=== PATIENT | female | born 1955 | race Caucasian/White ===

== ENCOUNTER → 2019-02-04 | Outpatient (CLI) | payer MEDICARE ==
[2019-02-04 11:57] LABS: BASO # 0.1 10^3/uL (0.0-0.2); BASO % 1.4 % (0.0-1.0); EOS # 0.2 10^3/uL (0.0-0.50); EOS % 2.6 % (0.0-3.0); HEMATOCRIT 27.9 % (36.0-47.0); LYMPH # 2.4 10^3/uL (1.5-4.5); LYMPH % 33.4 % (24.0-44.0); MEAN CORPUSCULAR HEMOGLOBIN 44.8 pg (27.0-33.0); MEAN CORPUSCULAR VOLUME 104.1 fl (80.0-96.0); MONO # 0.4 10^3/uL (0.0-0.8); MONO % 5.9 % (0.0-5.0); NEUTROPHILS # 4.1 10^3/uL (1.8-7.7); NEUTROPHILS % 56.4 % (36.0-66.0); PLATELET COUNT, AUTOMATED 351 10^3/uL (150-450); RED BLOOD COUNT 2.68 10^6/uL (4.00-5.40); WHITE BLOOD COUNT 7.3 10^3/uL (4.0-10.0)
[2019-02-04 12:22] LABS: ALT/SGPT 23 U/L (12-78); BILIRUBIN,TOTAL 1.8 MG/DL (0.2-1.0); BLOOD UREA NITROGEN 13 MG/DL (7-18); CARBON DIOXIDE LEVEL 29 MEQ/L (21-32); CHLORIDE LEVEL 108 MEQ/L (98-107); CHOLESTEROL LEVEL 180 MG/DL (<200); CHOLESTEROL RISK RATIO 3.529 (<5); CREATININE FOR GFR 0.87 MG/DL (0.55-1.30); GLOMERULAR FILTRATION RATE > 60.0 (>45); GLUCOSE, FASTING 97 MG/DL (70-100); HDL CHOLESTEROL 51 MG/DL (>40); LDL CHOLESTEROL 105 MG/DL (<100); NON-HDL-C 129 MG/DL; POTASSIUM SERUM 4.4 MEQ/L (3.5-5.1); SODIUM LEVEL 141 MEQ/L (136-145); TOTAL PROTEIN 7.2 GM/DL (6.4-8.2); TRIGLYCERIDES LEVEL 121 MG/DL (<150)
[2019-02-04 12:41] LABS: ANISOCYTOSIS 2+; PLATELET ESTIMATE NORMAL (NORMAL)
--- NOTE | 2019-02-04 12:57 | REP ---
Left foot four views: There are no comparisons. There is diffuse demineralization. There is no fracture or dislocation. There are no calcifications or foreign bodies. There is a small calcaneal plantar spur. There is moderate DIP and PIP joint space narrowing of the digits. Electronically Signed by Toan Villavicencio MD 02/04/2019 12:48 P
== END ==
LOC: M LAB 11:05
PROVIDERS: ATTEND Physician Assistant
DX: M77.32 Calcaneal spur, left foot (principal); M19.072 Primary osteoarthritis, left ankle and foot; D59.1 Other autoimmune hemolytic anemias; R03.0 Elevated blood-pressure reading, without diagnosis of hypertension; Z13.6 Encounter for screening for cardiovascular disorders; M79.672 Pain in left foot

== ENCOUNTER → 2019-02-27 | Outpatient (CLI) | payer MEDICARE ==
[~2019-02-27] MED LIST: GASTROGRAFIN SOLUTION 30ML (Q9963) As Ordered ONE
--- NOTE | 2019-02-27 18:50 | REP ---
CT CHEST WITHOUT IV CONTRAST: CT chest was performed without IV contrast. Sagittal and coronal reconstruction images are performed. There is no evidence of mediastinal, hilar or chest wall lymphadenopathy. There is no pleural or pericardial effusion. The heart is normal in size. There is atherosclerotic calcification of the thoracic aorta without aneurysm. The lungs show no infiltrate or suspicious nodular opacity. There are mild diffuse degenerative changes of the spine. IMPRESSION: No evidence of lymphadenopathy in the chest and no suspicious parenchymal abnormality. Electronically Signed by Toan Linares MD 02/28/2019 09:55 A
--- NOTE | 2019-02-27 18:54 | REP ---
CT ABDOMEN AND PELVIS WITH ORAL AND WITHOUT IV CONTRAST: CT abdomen and pelvis performed with oral contrast. No IV contrast was administered. Sagittal and coronal reconstruction images are performed. The liver demonstrates two tiny calcifications at the posterior margin of the liver. The patient has had a prior cholecystectomy. I do not see definite biliary dilatation. The spleen is normal in size with no gross abnormality. The adrenals and pancreas demonstrate no gross abnormality. There is no hydroureteronephrosis. There is a tiny subcentimeter calcification in the cortex of the mid left kidney laterally which is unchanged since the prior CT 09/17/2007. There is moderate atherosclerotic calcification of the abdominal aorta without aneurysm. There is no adenopathy. There is no free air or free fluid. No bowel wall thickening is seen. The appendix is normal. Sigmoid diverticulosis is noted without acute diverticulitis. I see no pelvic mass. The ovaries are quite small in size with no mass. The urinary bladder is mildly distended and grossly unremarkable. There are mild degenerative changes of the spine. IMPRESSION: Status post cholecystectomy. Sigmoid diverticulosis without acute diverticulitis. No adenopathy. No gross mass in the abdomen or pelvis. No free air or free fluid. Electronically Signed by Toan Linares MD 02/28/2019 09:55 A
== END ==
LOC: M RAD 12:48
PROVIDERS: ATTEND Internal Medicine Hematology & Oncology
DX: D89.2 Hypergammaglobulinemia, unspecified (principal); K57.30 Diverticulosis of large intestine without perforation or abscess without bleeding
CPT/HCPCS: 71250; 74176; Q9963

== ENCOUNTER → 2019-03-04 | Outpatient (CLI) | payer MEDICARE | LOC: M WHC 12:34 | PROVIDERS: ATTEND Physician Assistant | DX: Z78.0 Asymptomatic menopausal state (principal) ==

== ENCOUNTER → 2019-04-08 | Outpatient (CLI) | payer MEDICARE ==
--- NOTE | 2019-04-10 09:40 | DEXA ---
AP SPINE L1 - L4 1.030 -1.3 0.3 LT FEMUR TOTAL 0.751 -2.0 -0.8 LT NECK 0.722 -2.3 -0.8 RT FEMUR TOTAL 0.789 -1.7 -0.5 RT NECK 0.707 -2.4 -0.9 TOTAL BODY TOTAL OTHER COMMENTS: There is low bone density of the spine and hips. FOLLOW-UP: Recommendation for the next bone density exam: 2 years. [facility]
== END ==
LOC: M WHC 10:09
PROVIDERS: ATTEND Physician Assistant
DX: Z78.0 Asymptomatic menopausal state (principal)

== ENCOUNTER → 2019-05-09 | Outpatient (CLI) | payer MEDICARE ==
[2019-05-09 08:56] LABS: BASO # 0.1 10^3/uL (0.0-0.2); EOS # 0.3 10^3/uL (0.0-0.5); EOS % 5.6 % (0.0-3.0); HEMATOCRIT 26.5 % (36.0-47.0); HEMOGLOBIN 11.4 g/dl (12.0-15.5); LYMPH # 2.2 10^3/uL (1.5-5.0); LYMPH % 35.6 % (24.0-44.0); MEAN CORPUSCULAR HEMOGLOBIN 44.5 pg (27.0-33.0); MEAN CORPUSCULAR VOLUME 103.5 fl (80.0-96.0); MONO # 0.4 10^3/uL (0.0-0.8); MONO % 6.9 % (0.0-5.0); NEUTROPHILS % 49.6 % (36.0-66.0); PLATELET COUNT, AUTOMATED 362 10^3/uL (150-450); RED BLOOD COUNT 2.56 10^6/uL (4.00-5.40); WHITE BLOOD COUNT 6.1 10^3/uL (4.0-10.0)
[2019-05-09 09:04] LABS: ALBUMIN 3.7 GM/DL (3.2-5.2); ALT/SGPT 23 U/L (12-78); BLOOD UREA NITROGEN 14 MG/DL (7-18); CALCIUM LEVEL 8.9 MG/DL (8.8-10.2); CARBON DIOXIDE LEVEL 29 MEQ/L (21-32); CHLORIDE LEVEL 109 MEQ/L (98-107); CHOLESTEROL LEVEL 177 MG/DL (<200); CHOLESTEROL RISK RATIO 3.339 (<5); CREATININE FOR GFR 0.95 MG/DL (0.55-1.30); GLOMERULAR FILTRATION RATE > 60.0 (>45); GLUCOSE, FASTING 100 MG/DL (70-100); HDL CHOLESTEROL 53 MG/DL (>40); LDL CHOLESTEROL 96 MG/DL (<100); NON-HDL-C 124 MG/DL; POTASSIUM SERUM 4.2 MEQ/L (3.5-5.1); SODIUM LEVEL 142 MEQ/L (136-145); TOTAL PROTEIN 7.3 GM/DL (6.4-8.2); TRIGLYCERIDES LEVEL 140 MG/DL (<150)
== END ==
LOC: M LAB 07:55
PROVIDERS: ATTEND Physician Assistant
DX: Z13.6 Encounter for screening for cardiovascular disorders (principal); D59.1 Other autoimmune hemolytic anemias; R03.0 Elevated blood-pressure reading, without diagnosis of hypertension

== ENCOUNTER → 2019-05-22 | Outpatient (CLI) | payer MEDICARE | LOC: M LAB 15:05 | PROVIDERS: ATTEND Internal Medicine Endocrinology, Diabetes & Metabolism | DX: E55.9 Vitamin D deficiency, unspecified (principal) ==

== ENCOUNTER → 2021-11-01 | Outpatient (REF) | payer MEDICARE ==
[2021-11-01 17:52] LABS: BASO # 0.1 10^3/uL (0.0-0.2); EOS # 0.3 10^3/uL (0.0-0.5); EOS % 5.1 % (0.0-3.0); HEMATOCRIT 29.4 % (36.0-47.0); HEMOGLOBIN 10.4 g/dl (12.0-15.5); LYMPH # 2.2 10^3/uL (1.5-5.0); LYMPH % 37.1 % (24.0-44.0); MEAN CORPUSCULAR HEMOGLOBIN 36.6 pg (27.0-33.0); MEAN CORPUSCULAR HGB CONC 35.4 g/dl (32.0-36.5); MEAN CORPUSCULAR VOLUME 103.5 fl (80.0-96.0); MONO # 0.4 10^3/uL (0.0-0.8); MONO % 6.4 % (2.0-8.0); NEUTROPHILS # 2.9 10^3/uL (1.5-8.5); NEUTROPHILS % 49.2 % (36.0-66.0); PLATELET COUNT, AUTOMATED 386 10^3/uL (150-450); RED BLOOD COUNT 2.84 10^6/uL (4.00-5.40); WHITE BLOOD COUNT 5.9 10^3/uL (4.0-10.0)
[2021-11-01 18:09] LABS: ALBUMIN 3.8 GM/DL (3.2-5.2); ALT/SGPT 24 U/L (12-78); BILIRUBIN,TOTAL 2.1 MG/DL (0.2-1.0); BLOOD UREA NITROGEN 12 MG/DL (7-18); CALCIUM LEVEL 8.9 MG/DL (8.8-10.2); CARBON DIOXIDE LEVEL 28 MEQ/L (21-32); CHLORIDE LEVEL 108 MEQ/L (98-107); CHOLESTEROL LEVEL 147 MG/DL (<200); CHOLESTEROL RISK RATIO 2.722 (<5); CREATININE FOR GFR 0.91 MG/DL (0.55-1.30); GLOMERULAR FILTRATION RATE > 60.0 (>45); GLUCOSE, FASTING 89 MG/DL (70-100); HDL CHOLESTEROL 54 MG/DL (>40); LDL CHOLESTEROL 73 MG/DL (<100); NON-HDL-C 93 MG/DL; POTASSIUM SERUM 4.5 MEQ/L (3.5-5.1); SODIUM LEVEL 141 MEQ/L (136-145); TOTAL PROTEIN 7.1 GM/DL (6.4-8.2); TRIGLYCERIDES LEVEL 99 MG/DL (<150)
[2021-11-01 19:28] LABS: HEMOGLOBIN A1c 4.5 %
== END ==
LOC: M SFHCCAPE 08:09
PROVIDERS: ATTEND Physician Assistant
DX: R74.8 Abnormal levels of other serum enzymes (principal); I10 Essential (primary) hypertension; M85.851 Other specified disorders of bone density and structure, right thigh; Z79.899 Other long term (current) drug therapy

== ENCOUNTER → 2021-11-07 | Outpatient (REF) | payer MEDICARE | LOC: M SFHCCAPE 10:07 | PROVIDERS: ATTEND Physician Assistant | DX: R35.0 Frequency of micturition (principal) ==

== ENCOUNTER → 2021-11-09 | Outpatient (REF) | payer MEDICARE | LOC: M SFHCDERM 17:13 | PROVIDERS: ATTEND Physician Assistant | DX: D04.39 Carcinoma in situ of skin of other parts of face (principal) ==

== ENCOUNTER → 2022-05-09 | Outpatient (REF) | payer MEDICARE | LOC: M SFHCCAPE 08:01 | PROVIDERS: ATTEND Physician Assistant | DX: E55.9 Vitamin D deficiency, unspecified (principal); I10 Essential (primary) hypertension ==

== ENCOUNTER → 2022-05-09 | Outpatient (CLI) | payer MEDICARE ==
[2022-05-09 11:50] LABS: BASO # 0.1 10^3/uL (0.0-0.2); BASO % 1.7 % (0.0-1.0); EOS # 0.3 10^3/uL (0.0-0.5); EOS % 4.3 % (0.0-3.0); HEMATOCRIT 33.9 % (36.0-47.0); HEMOGLOBIN 11.9 g/dl (12.0-15.5); LYMPH # 2.1 10^3/uL (1.5-5.0); LYMPH % 32.2 % (24.0-44.0); MEAN CORPUSCULAR HEMOGLOBIN 34.3 pg (27.0-33.0); MEAN CORPUSCULAR VOLUME 97.7 fl (80.0-96.0); MONO # 0.4 10^3/uL (0.0-0.8); NEUTROPHILS # 3.6 10^3/uL (1.5-8.5); NEUTROPHILS % 55.6 % (36.0-66.0); PLATELET COUNT, AUTOMATED 403 10^3/uL (150-450); RED BLOOD COUNT 3.47 10^6/uL (4.00-5.40); WHITE BLOOD COUNT 6.5 10^3/uL (4.0-10.0)
[2022-05-09 11:53] LABS: MEAN CORPUSCULAR HGB CONC 35.1 g/dl (32.0-36.5)
[2022-05-09 12:27] LABS: BLOOD UREA NITROGEN 14 MG/DL (7-18); CARBON DIOXIDE LEVEL 28 MEQ/L (21-32); CHLORIDE LEVEL 105 MEQ/L (98-107); CREATININE FOR GFR 0.97 MG/DL (0.55-1.30); GLOMERULAR FILTRATION RATE > 60.0 (>45); GLUCOSE, FASTING 101 MG/DL (70-100); POTASSIUM SERUM 4.4 MEQ/L (3.5-5.1); SODIUM LEVEL 138 MEQ/L (136-145)
[2022-05-09 12:28] LABS: ALT/SGPT 21 U/L (12-78); CALCIUM LEVEL 9.3 MG/DL (8.8-10.2); CHOLESTEROL LEVEL 172 MG/DL (<200); CHOLESTEROL RISK RATIO 3.017 (<5); HDL CHOLESTEROL 57 MG/DL (>40); LDL CHOLESTEROL 89 MG/DL (<100); NON-HDL-C 115 MG/DL; TOTAL PROTEIN 7.8 GM/DL (6.4-8.2); TRIGLYCERIDES LEVEL 130 MG/DL (<150)
[2022-05-09 13:00] LABS: TOTAL 25(OH) VITAMIN D 52.9 NG/ML (30.0-100.0)
== END ==
LOC: M PLALAB 09:26
PROVIDERS: ATTEND Physician Assistant
DX: E55.9 Vitamin D deficiency, unspecified (principal); E07.9 Disorder of thyroid, unspecified; E78.00 Pure hypercholesterolemia, unspecified

== ENCOUNTER → 2022-11-06 | Outpatient (CLI) | payer MEDICARE | LOC: M WHC 13:59 | PROVIDERS: ATTEND Physician Assistant | DX: M85.851 Other specified disorders of bone density and structure, right thigh (principal) ==

== ENCOUNTER → 2022-11-08 | Outpatient (CLI) | payer MEDICARE ==
[2022-11-08 11:10] LABS: ALBUMIN 3.9 G/DL (3.2-5.2); ALKALINE PHOSPHATASE 118 U/L (46-116); ALT/SGPT 17 U/L (7.0-40); AST/SGOT 32 U/L (<34); BILIRUBIN,TOTAL 2.5 MG/DL (0.3-1.2); BLOOD UREA NITROGEN 16 MG/DL (9-23); CALCIUM LEVEL 9.2 MG/DL (8.3-10.6); CARBON DIOXIDE LEVEL 28 MMOL/L (20-31); CHLORIDE LEVEL 105 MMOL/L (98-107); CHOLESTEROL LEVEL 151 MG/DL (<200); CHOLESTEROL RISK RATIO 2.86 (<5); CREATININE FOR GFR 0.83 MG/DL (0.55-1.30); FREE T4 1.36 NG/DL (0.89-1.76); GLOMERULAR FILTRATION RATE > 60.0 (>45); GLUCOSE, FASTING 96 MG/DL (74-106); HDL CHOLESTEROL 52.7 MG/DL (>40); LDL CHOLESTEROL 72.3 MG/DL (<100); NON-HDL-C 98.3 MG/DL; POTASSIUM SERUM 4.4 MMOL/L (3.5-5.1); SODIUM LEVEL 140 MMOL/L (136-145); THYROID STIMULATING HORMONE 1.784 uIU/ML (0.55-4.78); TOTAL 25(OH) VITAMIN D 65.6 NG/ML (20.0-100.0); TOTAL PROTEIN 7.4 G/DL (5.7-8.2); TRIGLYCERIDES LEVEL 130 MG/DL (<150)
[2022-11-08 13:18] LABS: BASO # 0.1 10^3/uL (0.0-0.2); BASO % 1.6 % (0.0-1.0); EOS # 0.3 10^3/uL (0.0-0.5); EOS % 3.6 % (0.0-3.0); HEMATOCRIT 26.2 % (36.0-47.0); HEMOGLOBIN 10.9 g/dl (12.0-15.5); LYMPH # 2.4 10^3/uL (1.5-5.0); LYMPH % 34.2 % (24.0-44.0); MEAN CORPUSCULAR HEMOGLOBIN 45.4 pg (27.0-33.0); MEAN CORPUSCULAR VOLUME 109.2 fl (80.0-96.0); MONO # 0.4 10^3/uL (0.0-0.8); MONO % 5.3 % (2.0-8.0); NEUTROPHILS # 3.8 10^3/uL (1.5-8.5); PLATELET COUNT, AUTOMATED 389 10^3/uL (150-450)
[2022-11-08 13:21] LABS: MEAN CORPUSCULAR HGB CONC 41.6 g/dl (32.0-36.5)
== END ==
LOC: M PLALAB 08:47
PROVIDERS: ATTEND Physician Assistant
DX: I10 Essential (primary) hypertension (principal); E55.9 Vitamin D deficiency, unspecified

== ENCOUNTER → 2022-11-08 | Outpatient (CLI) | payer MEDICARE | LOC: M WHC 08:39 | PROVIDERS: ATTEND Physician Assistant | DX: M85.851 Other specified disorders of bone density and structure, right thigh (principal) ==

== ENCOUNTER → 2022-12-20 | Outpatient (CLI) | payer MEDICARE ==
[2022-12-20 10:44] LABS: IMMUNOGLOBULIN A 48.2 MG/DL (40-350); LDH LACTATE DEHYDROGENASE 295 U/L (120-246)
[2022-12-20 10:45] LABS: ALBUMIN 3.8 G/DL (3.2-5.2); ALKALINE PHOSPHATASE 114 U/L (46-116); ALT/SGPT 17 U/L (7.0-40); AST/SGOT 27 U/L (<34); BILIRUBIN,TOTAL 2.2 MG/DL (0.3-1.2); BLOOD UREA NITROGEN 13 MG/DL (9-23); CARBON DIOXIDE LEVEL 27 MMOL/L (20-31); CHLORIDE LEVEL 106 MMOL/L (98-107); CREATININE FOR GFR 0.85 MG/DL (0.55-1.30); GLOMERULAR FILTRATION RATE > 60.0 (>45); GLUCOSE, FASTING 94 MG/DL (74-106); POTASSIUM SERUM 4.8 MMOL/L (3.5-5.1); SODIUM LEVEL 138 MMOL/L (136-145); TOTAL PROTEIN 6.9 G/DL (5.7-8.2)
[2022-12-20 15:58] LABS: IMMUNOGLOBULIN G 680 MG/DL (650-1600); IMMUNOGLOBULIN M 1631.3 MG/DL (50-300)
[2022-12-21 19:06] LABS: FREE KAPPA LIGHT CHAINS SERUM 54.3 mg/L (3.3-19.4); FREE LAMBDA LIGHT CHAINS SERUM 11.3 mg/L (5.7-26.3); HAPTOGLOBIN < 10 mg/dL (37-355); IMMUNOTYPING SERUM IGA SO 47 mg/dL (87-352); IMMUNOTYPING SERUM IGM SO 1605 mg/dL (26-217); KAPPA/LAMBDA RATIO SERUM 4.81 (0.26-1.65)
== END ==
LOC: M LAB 09:04
PROVIDERS: ATTEND Internal Medicine Hematology & Oncology
DX: D47.2 Monoclonal gammopathy (principal)

== ENCOUNTER → 2023-05-28 | Outpatient (CLI) | payer MEDICARE ==
[2023-05-28 10:01] LABS: LDH LACTATE DEHYDROGENASE 348 U/L (120-246)
[2023-05-28 10:02] LABS: ALBUMIN 3.9 G/DL (3.2-5.2); ALKALINE PHOSPHATASE 101 U/L (46-116); ALT/SGPT 16 U/L (7.0-40); AST/SGOT 27 U/L (<34); BILIRUBIN,TOTAL 2.3 MG/DL (0.3-1.2); BLOOD UREA NITROGEN 15 MG/DL (9-23); CARBON DIOXIDE LEVEL 28 MMOL/L (20-31); CHLORIDE LEVEL 106 MMOL/L (98-107); CREATININE FOR GFR 0.93 MG/DL (0.55-1.30); GLOMERULAR FILTRATION RATE > 60.0 (>45); GLUCOSE, FASTING 89 MG/DL (74-106); POTASSIUM SERUM 4.6 MMOL/L (3.5-5.1); SODIUM LEVEL 140 MMOL/L (136-145); TOTAL PROTEIN 7.4 G/DL (5.7-8.2)
[2023-05-28 10:03] LABS: IMMUNOGLOBULIN A 44.5 MG/DL (40-350)
[2023-05-28 11:13] LABS: BASO # 0.1 10^3/uL (0.0-0.2); BASO % 1.7 % (0.0-1.0); EOS # 0.3 10^3/uL (0.0-0.5); EOS % 4.4 % (0.0-3.0); HEMATOCRIT 29.5 % (36.0-47.0); LYMPH # 2.7 10^3/uL (1.5-5.0); LYMPH % 36.8 % (24.0-44.0); MEAN CORPUSCULAR HEMOGLOBIN 37.4 pg (27.0-33.0); MEAN CORPUSCULAR HGB CONC 37.3 g/dl (32.0-36.5); MEAN CORPUSCULAR VOLUME 100.3 fl (80.0-96.0); MONO # 0.4 10^3/uL (0.0-0.8); MONO % 5.9 % (2.0-8.0); NEUTROPHILS # 3.7 10^3/uL (1.5-8.5); NEUTROPHILS % 50.9 % (36.0-66.0); PLATELET COUNT, AUTOMATED 437 10^3/uL (150-450); RED BLOOD COUNT 2.94 10^6/uL (4.00-5.40); WHITE BLOOD COUNT 7.3 10^3/uL (4.0-10.0)
== END ==
LOC: M LAB 07:45
PROVIDERS: ATTEND Internal Medicine Hematology & Oncology
DX: D47.2 Monoclonal gammopathy (principal)

== ENCOUNTER → 2023-05-28 | Outpatient (CLI) | payer MEDICARE ==
[2023-05-28 09:56] LABS: ALKALINE PHOSPHATASE 104 U/L (46-116); ALT/SGPT 13 U/L (7.0-40); AST/SGOT 25 U/L (<34); BILIRUBIN,TOTAL 2.2 MG/DL (0.3-1.2); BLOOD UREA NITROGEN 15 MG/DL (9-23); CALCIUM LEVEL 9.3 MG/DL (8.3-10.6); CARBON DIOXIDE LEVEL 27 MMOL/L (20-31); CHLORIDE LEVEL 105 MMOL/L (98-107); CHOLESTEROL LEVEL 160 MG/DL (<200); CHOLESTEROL RISK RATIO 2.84 (<5); CREATININE FOR GFR 0.89 MG/DL (0.55-1.30); FREE T4 1.38 NG/DL (0.89-1.76); GLOMERULAR FILTRATION RATE > 60.0 (>45); GLUCOSE, FASTING 90 MG/DL (74-106); HDL CHOLESTEROL 56.3 MG/DL (>40); LDL CHOLESTEROL 81.5 MG/DL (<100); NON-HDL-C 103.7 MG/DL; POTASSIUM SERUM 4.5 MMOL/L (3.5-5.1); SODIUM LEVEL 138 MMOL/L (136-145); THYROID STIMULATING HORMONE 1.663 uIU/ML (0.55-4.78); TOTAL 25(OH) VITAMIN D 64.1 NG/ML (20.0-100.0); TOTAL PROTEIN 7.3 G/DL (5.7-8.2); TRIGLYCERIDES LEVEL 111 MG/DL (<150)
== END ==
LOC: M LAB 07:44
PROVIDERS: ATTEND Physician Assistant
DX: I10 Essential (primary) hypertension (principal); M85.852 Other specified disorders of bone density and structure, left thigh

== ENCOUNTER → 2023-06-26 | Outpatient (CLI) | payer MEDICARE ==
[2023-06-26 08:46] LABS: ALBUMIN 3.9 G/DL (3.2-5.2); ALKALINE PHOSPHATASE 100 U/L (46-116); ALT/SGPT 21 U/L (7.0-40); AST/SGOT 19 U/L (<34); BILIRUBIN,TOTAL 1.9 MG/DL (0.3-1.2); BLOOD UREA NITROGEN 12 MG/DL (9-23); CALCIUM LEVEL 9.3 MG/DL (8.3-10.6); CARBON DIOXIDE LEVEL 29 MMOL/L (20-31); CHLORIDE LEVEL 105 MMOL/L (98-107); CREATININE FOR GFR 0.81 MG/DL (0.55-1.30); GLOMERULAR FILTRATION RATE > 60.0 (>45); GLUCOSE, FASTING 107 MG/DL (74-106); POTASSIUM SERUM 4.5 MMOL/L (3.5-5.1); SODIUM LEVEL 139 MMOL/L (136-145); TOTAL PROTEIN 7.3 G/DL (5.7-8.2)
[2023-06-26 09:20] LABS: BASO # 0.1 10^3/uL (0.0-0.2); BASO % 1.5 % (0.0-1.0); EOS # 0.2 10^3/uL (0.0-0.5); HEMATOCRIT 31.2 % (36.0-47.0); HEMOGLOBIN 11.3 g/dl (12.0-15.5); LYMPH # 2.5 10^3/uL (1.5-5.0); LYMPH % 34.3 % (24.0-44.0); MEAN CORPUSCULAR VOLUME 99.4 fl (80.0-96.0); MONO # 0.4 10^3/uL (0.0-0.8); MONO % 5.5 % (2.0-8.0); NEUTROPHILS % 55.6 % (36.0-66.0); PLATELET COUNT, AUTOMATED 397 10^3/uL (150-450); RED BLOOD COUNT 3.14 10^6/uL (4.00-5.40); WHITE BLOOD COUNT 7.3 10^3/uL (4.0-10.0)
[2023-06-26 09:23] LABS: MEAN CORPUSCULAR HGB CONC 36.2 g/dl (32.0-36.5)
== END ==
LOC: M LAB 07:49
PROVIDERS: ATTEND Internal Medicine Hematology & Oncology
DX: D47.2 Monoclonal gammopathy (principal)

== ENCOUNTER → 2024-06-02 | Outpatient (CLI) | payer MEDICARE ==
[2024-06-02 09:22] LABS: THYROID STIMULATING HORMONE 1.723 uIU/ML (0.55-4.78); TOTAL 25(OH) VITAMIN D 52.6 NG/ML (20.0-100.0)
[2024-06-02 09:24] LABS: ALBUMIN 3.8 G/DL (3.2-5.2); ALKALINE PHOSPHATASE 97 U/L (35-104); ALT/SGPT 18 U/L (7.0-40); AST/SGOT 31 U/L (<34); BILIRUBIN,TOTAL 2.1 MG/DL (0.3-1.2); BLOOD UREA NITROGEN 14 MG/DL (9-23); CALCIUM LEVEL 9.1 MG/DL (8.3-10.6); CARBON DIOXIDE LEVEL 29 MMOL/L (20-31); CHLORIDE LEVEL 109 MMOL/L (98-107); CHOLESTEROL LEVEL 170 MG/DL (<200); CREATININE FOR GFR 0.91 MG/DL (0.55-1.30); GLOMERULAR FILTRATION RATE > 60.0 (>39); GLUCOSE, FASTING 97 MG/DL (74-106); HDL CHOLESTEROL 58.6 MG/DL (>40); LDL CHOLESTEROL 88.4 MG/DL (<100); NON-HDL-C 111.4 MG/DL; POTASSIUM SERUM 4.4 MMOL/L (3.5-5.1); SODIUM LEVEL 142 MMOL/L (136-145); TOTAL PROTEIN 7.2 G/DL (5.7-8.2); TRIGLYCERIDES LEVEL 115 MG/DL (<150)
== END ==
LOC: M LAB 08:04
PROVIDERS: ATTEND Physician Assistant Medical
DX: Z00.00 Encounter for general adult medical examination without abnormal findings (principal); M81.0 Age-related osteoporosis without current pathological fracture; Z13.220 Encounter for screening for lipoid disorders; E07.9 Disorder of thyroid, unspecified; E78.00 Pure hypercholesterolemia, unspecified

== ENCOUNTER → 2025-04-06 | Outpatient (CLI) | payer MEDICARE ==
[2025-04-06 12:54] LABS: ALT/SGPT 19.0 U/L (7.0-40); AST/SGOT 34.0 U/L (<34); CALCIUM LEVEL 9.1 MG/DL (8.3-10.6); CARBON DIOXIDE LEVEL 29.0 MMOL/L (20-31); CHLORIDE LEVEL 106.0 MMOL/L (98-107); CREATININE FOR GFR 0.85 MG/DL (0.55-1.30); GLOMERULAR FILTRATION RATE 73.2 (>39); POTASSIUM SERUM 4.9 MMOL/L (3.5-5.1); SODIUM LEVEL 139.0 MMOL/L (136-145)
[2025-04-06 13:03] LABS: BASO # 0.1 10^3/uL (0.0-0.2); BASO % 1.5 % (0.0-1.0); EOS # 0.2 10^3/uL (0.0-0.5); EOS % 2.1 % (0.0-3.0); LYMPH # 2.5 10^3/uL (1.5-5.0); LYMPH % 30.3 % (24.0-44.0); MONO # 0.4 10^3/uL (0.0-0.8); MONO % 4.8 % (2.0-8.0); NEUTROPHILS # 5.0 10^3/uL (1.5-8.5); NEUTROPHILS % 61.1 % (36.0-66.0); PLATELET COUNT, AUTOMATED 594 10^3/uL (150-450)
[2025-04-07 11:16] LABS: T P ELECTROPHORESIS SO 7.2 g/dL (6.1-8.1)
== END ==
LOC: M LAB 10:05
PROVIDERS: ATTEND Internal Medicine Hematology & Oncology
DX: D47.2 Monoclonal gammopathy (principal)

== ENCOUNTER → 2025-04-13 | Outpatient (CLI) | payer MEDICARE ==
[~2025-04-13] MED LIST changes: -GASTROGRAFIN SOLUTION 30ML (Q9963) As Ordered ONE; +ISOVUE-370 76% 100 ML VIAL As Ordered ONE
== END ==
LOC: M RAD 13:24
PROVIDERS: ATTEND Internal Medicine Hematology & Oncology
DX: D47.2 Monoclonal gammopathy (principal); D59.6 Hemoglobinuria due to hemolysis from other external causes
CPT/HCPCS: 71260; 74177; Q9967

== ENCOUNTER → 2025-05-28 | Outpatient (CLI) | payer MEDICARE | LOC: M WHC 09:27 | PROVIDERS: ATTEND Physician Assistant Medical | DX: M81.0 Age-related osteoporosis without current pathological fracture (principal) ==